=== PATIENT | male | born 1985 | race Caucasian/White ===

== ENCOUNTER 2018-02-21 21:29 | Emergency (ER) | payer MEDICAID ==
[~2018-02-21] VITALS: Ht 180.3 cm; Wt 90.3 kg
[2018-02-22 00:02] VITALS: BP 133/66
== END 2018-02-22 00:02 | disposition home or self-care (01) ==
LOC: ED 21:29
DX: M79.672 Pain in left foot (principal)

== ENCOUNTER 2018-03-06 17:00 | Inpatient (IN) | payer MEDICAID ==
[~2018-03-06] VITALS: Ht 180.3 cm; Wt 88.9 kg
[2018-03-06 17:10] VITALS: Ht 180.3 cm; Wt 88.9 kg
[2018-03-06 17:57] LABS: BASOPHIL % 0.2 % (0-2); PLATELET COUNT 228 x10^3mcL (130-400); RED CELL DISTRIBUTION WIDTH 13.4 % (11.5-14.5)
[2018-03-06 18:15] LABS: CALCIUM 9.3 mg/dL (8.5-10.1); CHLORIDE SERUM 106 mmol/L (98-107); CREATININE SERUM 0.8 mg/dL (0.7-1.3); GFR1 > 60 mL/min; GLUCOSE SERUM 114 mg/dL (74-106); POTASSIUM SERUM 4.1 mmol/L (3.5-5.1); SODIUM SERUM 140 mmol/L (136-145)
[2018-03-06 18:20] LABS: ALBUMIN 4.1 g/dL (3.4-5.0); ALKALINE PHOSPHATASE 96 U/L (46-116); ALT/SGPT 42 U/L (16-63); AMYLASE 43 U/L (25-115); AST/SGOT 32 U/L (15-37); BILIRUBIN TOTAL 0.44 mg/dL (0.20-1.00); LIPASE 101 IU/L (73-393); TOTAL PROTEIN, SERUM 7.5 g/dL (6.4-8.2)
[2018-03-06 19:40] LABS: microscopic required? NO
[2018-03-06 19:47] LABS: UA SPECIFIC GRAVITY 1.015 (1.005-1.035); urine erythrocyte NEGATIVE (NEGATIVE)
[2018-03-06 20:05] LABS: AMPHETAMINE QUAL UR NONE DETECTED (NEG <=1000)
[2018-03-06 20:16] VITALS: BP 121/71
[2018-03-06 20:27] LABS: CHOLESTEROL/HDL RATIO 2.6; PHOSPHOROUS 2.9 mg/dL (2.5-4.9)
[2018-03-06 20:34] LABS: T3 TOTAL 1.2 ng/mL
[2018-03-06 21:01] LABS: FREE T4 0.85 ng/dL (0.76-1.46); FREE THYROXINE INDEX 2.6 ug/dL (1.4-4.5); T4(THYROXINE) 7.6 ug/dL (4.7-13.3)
[2018-03-07 05:23] VITALS: BP 110/49
[2018-03-07 09:50] VITALS: BP 116/60
[2018-03-07 13:55] VITALS: BP 105/62
[2018-03-07 17:26] VITALS: BP 119/67
[2018-03-07 21:21] VITALS: BP 116/58
[2018-03-08 05:21] VITALS: BP 102/54
[2018-03-08 06:31] LABS: CALCIUM 8.8 mg/dL (8.5-10.1); CARBON DIOXIDE 29.5 mmol/L (21-32); CHLORIDE SERUM 107 mmol/L (98-107); CREATININE SERUM 0.9 mg/dL (0.7-1.3); GFR1 > 60 mL/min; GLUCOSE SERUM 89 mg/dL (74-106); PHOSPHOROUS 3.8 mg/dL (2.5-4.9); POTASSIUM SERUM 3.9 mmol/L (3.5-5.1); SODIUM SERUM 140 mmol/L (136-145)
[2018-03-08 06:40] LABS: BASOPHIL % 0.4 % (0-2); PLATELET COUNT 211 x10^3mcL (130-400); RED CELL DISTRIBUTION WIDTH 13.6 % (11.5-14.5)
[2018-03-08 10:20] VITALS: BP 150/84
[2018-03-08 18:01] VITALS: BP 128/77
[2018-03-08 20:39] VITALS: BP 128/70
[2018-03-09 06:02] VITALS: BP 123/71
[2018-03-09 06:17] LABS: ALKALINE PHOSPHATASE 73 U/L (46-116); ALT/SGPT 41 U/L (16-63); AST/SGOT 35 U/L (15-37); BILIRUBIN TOTAL 0.6 mg/dL (0.20-1.00); CARBON DIOXIDE 29.9 mmol/L (21-32); CHLORIDE SERUM 117 mmol/L (98-107); CREATININE SERUM 0.9 mg/dL (0.7-1.3); GFR1 > 60 mL/min; GLUCOSE SERUM 96 mg/dL (74-106); MAGNESIUM 1.8 mg/dL (1.8-2.4); PHOSPHOROUS 4.3 mg/dL (2.5-4.9); POTASSIUM SERUM 3.2 mmol/L (3.5-5.1); SODIUM SERUM 129 mmol/L (136-145)
[2018-03-09 07:06] LABS: BASOPHIL % 0.3 % (0-2); PLATELET COUNT 203 x10^3mcL (130-400); RED CELL DISTRIBUTION WIDTH 13.2 % (11.5-14.5)
[2018-03-09 09:22] VITALS: BP 121/75
[2018-03-09 16:32] VITALS: BP 102/63
[2018-03-09 21:08] VITALS: BP 117/68
[2018-03-10 05:43] VITALS: BP 100/59
[2018-03-10 09:05] VITALS: BP 118/59
[2018-03-10 09:26] VITALS: BP 125/78
[2018-03-10] MEDS ORDERED: FLE10 PO (11:00)
[2018-03-10] MEDS ORDERED: NORCO1 TA2 PO (11:01)
[2018-03-10 11:25] VITALS: BP 125/78
[2018-03-10 16:39] VITALS: BP 106/63
[2018-03-10 20:36] VITALS: BP 105/54
[2018-03-11 05:49] VITALS: BP 98/63
[2018-03-11 06:36] LABS: BASOPHIL % 0.5 % (0-2); PLATELET COUNT 197 x10^3mcL (130-400); RED CELL DISTRIBUTION WIDTH 13.4 % (11.5-14.5)
[2018-03-11 06:43] LABS: CALCIUM 8.8 mg/dL (8.5-10.1); CARBON DIOXIDE 29.9 mmol/L (21-32); CHLORIDE SERUM 105 mmol/L (98-107); CREATININE SERUM 0.8 mg/dL (0.7-1.3); GFR1 > 60 mL/min; GLUCOSE SERUM 81 mg/dL (74-106); MAGNESIUM 1.9 mg/dL (1.8-2.4); PHOSPHOROUS 3.6 mg/dL (2.5-4.9); POTASSIUM SERUM 4.1 mmol/L (3.5-5.1); SODIUM SERUM 138 mmol/L (136-145)
[2018-03-11 09:19] VITALS: BP 98/63
[2018-03-11 10:05] VITALS: BP 125/78
== END 2018-03-11 14:50 | disposition home or self-care (01) | DRG 263 ==
LOC: ED 17:00 → DU 19:35 → MU 03-08 10:45
PROVIDERS: Emergency Medicine; Family Medicine; Surgery
PROC: 0FT44ZZ Resection of Gallbladder, Percutaneous Endoscopic Approach (ICD-10-PCS; principal; 2018-03-08 07:30)
DX: K80.00 Calculus of gallbladder with acute cholecystitis without obstruction (principal); E87.6 Hypokalemia; F12.90 Cannabis use, unspecified, uncomplicated; Z60.2 Problems related to living alone; Z71.51 Drug abuse counseling and surveillance of drug abuser
CPT/HCPCS: 83880; 84439; J1885; J2175; J2250; J2270; J2405; J2543; J3010; J3480; J3490; J7030; Q0092; Q9967

== ENCOUNTER 2018-09-07 14:55 | Emergency (ER) | payer OTHER ==
[~2018-09-07] VITALS: Ht 172.7 cm; Wt 81.6 kg
[~2018-09-07 14:55] MED LIST: FLE10 PO; NORCO1 TA2 PO
[2018-09-07 14:57] VITALS: Ht 172.7 cm; Wt 81.6 kg
[2018-09-07 15:55] VITALS: BP 119/61
== END 2018-09-07 15:55 | disposition other institution (70) ==
LOC: ED 14:55
DX: Z02.89 Encounter for other administrative examinations (principal)